=== PATIENT | female | born 1975 | race Caucasian/White ===

== ENCOUNTER → 2019-06-24 12:45 | Outpatient (CLI) | payer OTHER, SELFPAY ==
--- NOTE | ~2019-06-24 | MM_ITS ---
EXAMINATION: MM scrn chery implant BI w carmen HISTORY: Screening mammogram TECHNIQUE: Craniocaudal and mediolateral oblique 3-D tomosynthesis images with implant displacement a nd synthetic 2-D images were generated. Craniocaudal and mediolateral oblique views of the breasts wi thout implant displacement were obtained using full field digital mammography. CAD analysis was submi tted and interpreted. COMPARISON: No prior mammogram is available for comparison at this institution. BREAST PARENCHYMAL COMPOSITION: There are scattered areas of fibroglandular density. FINDINGS: There are masses in the upper outer quadrant of the right breast in the medial aspect of th e left breast. There are no suspicious calcifications or architectural distortion. IMPRESSION: 1. Bilateral breast masses. 2. Additional mammographic views and possible breast ultrasound are recommended. BI-RADS Category 0: Incomplete: Needs additional imaging evaluation. Reviewed, dictated and finalized at location A. IMEDIA TECHNICIAN IMPRESSION: 1. Bilateral breast masses. 2. Additional mammographic views and possible breast ultrasound are recommended . BI-RADS Category 0: Incomplete: Needs additional imaging evaluation.
== END ==
PROVIDERS: PCP Internal Medicine; Visit Provider Internal Medicine
DX: Z12.31 Encounter for screening mammogram for malignant neoplasm of breast (principal); N63.11 Unspecified lump in the right breast, upper outer quadrant; N63.25 Unspecified lump in the left breast, overlapping quadrants
CPT/HCPCS: 77063; 77067

== ENCOUNTER → 2019-07-15 08:02 | Outpatient (CLI) | payer OTHER, SELFPAY ==
--- NOTE | ~2019-07-15 | MMUS_ITS ---
EXAMINATION: MM diagnostic mammo implant BI, US breast BI limited HISTORY: Follow-up bilateral breast masses TECHNIQUE: Additional 3-D tomosynthesis images of the breasts were performed and synthetic 2-D images were generated. CAD analysis was submitted and interpreted. High resolution bilateral breast ultraso und was performed. COMPARISON: 06/24/2019 FINDINGS: MAMMOGRAPHIC FINDINGS: Breast composed of scattered areas of fibroglandular density. There are bilateral subpectoral silicon e implants. Stable benign-appearing masses in the upper outer quadrant of the right breast. There are persistent masses in the medial aspect of the left breast which are partially circumscribed. ULTRASOUND: Right breast ultrasound: At 10:00, 6 cm from the nipple there is a 6 mm intramammary lymph node. At 11:00, 7 cm from the nippl e, there is a 3 mm cyst. Left breast ultrasound: At 9:00, 4 cm from the nipple, there is an irregular shaped hypoechoic mass measuring 9 x 9 x 5 mm wi th mixed posterior attenuation. At 7:00, 3 cm from the nipple, there is an oval partially circumscrib ed hypoechoic mass measuring 10 x 7 x 6 mm the. No posterior features or internal vascularity. IMPRESSION: 1. Hypoechoic masses of the left breast at 9 and 7:00 corresponding to the mammographic findings. The se are not specifically benign. Further evaluation with ultrasound-guided biopsy recommended. BI-RADS Category 4. 2. No evidence for malignancy in the right breast. Benign findings. BI-RADS Category 2, benign findin gs. Reviewed, dictated and finalized at location A. IMPRESSION: 1. Hypoechoic masses of the left breast at 9 and 7:00 corresponding to the mamm ographic findings. These are not specifically benign. Further evaluation with u ltrasound-guided biopsy recommended. BI-RADS Category 4. 2. No evidence for malignancy in the right breast. Benign findings. BI-RADS Cat egory 2, benign findings.
== END ==
PROVIDERS: Visit Provider Internal Medicine
DX: N63.10 Unspecified lump in the right breast, unspecified quadrant (principal); N63.20 Unspecified lump in the left breast, unspecified quadrant; R92.8 Other abnormal and inconclusive findings on diagnostic imaging of breast
CPT/HCPCS: 76642; 77066